=== PATIENT | female | born 1960 | race Caucasian/White ===

== ENCOUNTER → 2018-10-19 14:05 | Outpatient (CLI) | payer OTHER, SELFPAY ==
[2018-10-18 14:59] VITALS: BMI 35.6
--- OUTSIDE RECORDS SUMMARY | 2019-01-21 01:46 | XMS RPT_ITS ---
:1960 Author Organization OHIP Care Team Providers Name Role Phone Chauncey Pickett Attending Unavailable Dinorah Coleman Referring Unavailable Chauncey Pickett Attending Unavailable Chauncey Pickett Referring Unavailable Dinorah Coleman Primary Care Unavailable ASSESSMENT, HEALTH RISK Attending Unavailable ASSESSMENT, HEALTH RISK Referring Unavailable Dinorah Coleman Primary Care Unavailable PROBLEMS PROBLEMS DATE TYPE CONDITION / CODE ATTENDING STATUS SOURCE 10/19/2018 Unknown R05 - Cough / Chauncey Pickett Active [place] R05(ICD-10) [facility] Repository PROCEDURES PROCEDURES No Procedure Records FoundRESULTS RESULTS Observed: 10/19/2018 Status: F Source: [place] CULTURE, R/O STREP A 2:57 PM [facility] Culture No Group A Beta Streptococcus isolated. * This cultures intended use is to screen for Beta Streptococcus A only. All other pathogens and potential pathogens will not be screened for or reported. If a complete workup of all potential pathogens is indicated an order for a routine throat culture is required. Performed By: #### M100.010 #### [facility] [address] [place], [address] URGENT CARE VISIT Observed: 10/18/2018 Status: F Source: [place] REPORT 3:16 PM [facility] [address] [place] [address] [address] [place] [address] OFFICE VISIT Date of Service: 10/18/18 MR#: [id number] Acct: [id number] Name: RADHA GARCIA Rep #: [id number] : 1960 Provider: Chauncey SHANNON Age/Sex: 58/F Location: [facility] Status: Signed Intake Vital Signs10/18/18 Height 5 ft 4 in Intake Visit Reasons: COUGH, UPPER RESPIRATORY Chief Complaint: Cough Clipper Counters Required: No Accompanied by: self Allergies No Known Allergies Allergy (Verified 10/18/18 15:00) Medications Naproxen [Naprosyn] 500 mg PO BID #20 tab 07/02/15 [Rx Confirmed 10/18/18] Oxycodone HCl/Acetaminophen [Percocet 5/325] 1 - 2 tab PO Q4H PRN PRN #20 tab 07/02/15 [Rx Confirmed 10/18/18] Prednisone 10 mg PO DAILY 07/02/15 [History Confirmed 10/18/18] benzonatate 200 mg capsule 200 mg PO TID PRN #20 cap 10/18/18 [Rx Confirmed 10/18/18] PFSH Surgical History History of appendectomy (Acute) Family History Other CVA (cerebral vascular accident) Social History Smoking Status: Never smoker HPI HPI Chief Complaint: Cough Details: RADHA GARCIA, is a 58 F who presents to the office today for initial evaluation cough and sore throat times approximately 72 hours. Patient has no complaints of fever, chills, sweats, rash, chest pain/shortness of breath. Patient is a non-smoker noting no other members in household with similar complaints. She has taken no [id number] products to assist with her symptoms. She notes no other associated symptoms no other alleviating or aggravating factors. ROS Const Constitutional: No other (ROS negative x10 other than as noted above) Exam Const General: cooperative, healthy appearing, no acute distress, comfortable Orientation: alert, awake, oriented x3 [facility] Head: normal to inspection Ears: hearing grossly normal bilaterally, external ears normal, TM's normal bilaterally, EAC's normal Nose: external nose normal, nares normal, septum normal, no nasal discharge Face and sinus: normal facial exam, sinuses nontender, face symmetric Mouth: tongue normal, lip normal, oral mucosae normal Teeth and gingiva: dentition normal, gingiva normal Throat: uvula midline, posterior oropharynx normal, no postnasal drainage, abnormal tonsil bilaterally erythema (Rapid strep test today negative) Eyes General: appearance normal, both eyes and all related structures Neck Neck: normal visual inspection, full ROM, no lymphadenopathy, no meningeal signs, supple Neck mass: No Thyroid: thyroid normal Lymphatic: no lymphadenopathy noted Chest Chest palpation AND inspection: normal inspection of the chest Resp Effort AND Inspection: normal respiratory effort, able to speak in complete sentences, symmetric chest movement, cough Quality of cough: wet (Nonproductive) Auscultation: Bilateral: Clear to Auscultation Cardio Palpation: normal PMI Rate: regular rate Rhythm: regular rhythm Heart Sounds: S1 normal, S2 normal, no gallops, no murmurs, no rubs Pulses: radial pulses present GI Inspection: normal to inspection Palpation: soft, no hepatosplenomegaly Skin General: no rashes or lesions noted Neuro General: alert, awake, oriented x3, gait normal Cognition: normal cognition Speech: speech normal Gait: normal gait Motor: muscle tone normal throughout Sensory Exam: no sensory deficits noted Psych Appearance: grossly normal Mental Status: mental status grossly normal Mood: congruent mood Affect: normal affect Speech and Movement: speech and movement normal Attitude: cooperative Thought Process: normal Thought Content: normal Judgment: judgment good Results BMSRAPIDSTREPA Office Rapid Strep A Negative Last Edit by Wandy Kahn on 10/18/18 15:09 Assessment AND Plan Problems 1. Bronchitis J40 2. Pharyngitis J02.9 Plan [place] as needed as prescribed today. Patient aware today's rapid strep test was negative therefore culture sent to lab for further evaluation. Avoid tobacco smoke exposure. Follow-up PCP in 5-7 days should symptoms not improve, sooner should symptoms worsen or any other concerns develop. Patient states acknowledging understanding all the above. This note was generated with Exabre dictation software. It may contain incorrect words, spelling, and punctuation that were not noted in checking the note before signing. Orders Orders: Medications New: Coding Level of Care Code Off vis,new,level 3 Diagnoses Bronchitis J40 Pharyngitis J02.9 10/18/18 1516 <Electronically signed by Chauncey SHANNON> Date Chauncey SHANNON Cosigner Signature: Date (if applicable) CC: CBC, EMPLOYEE Collected: 07/28/2018 Status: F Source: [place] 11:47 AM [facility] TYPE CODE TESTS RESULT OUT OF RANGE REFERENCE UNITS LAB L100.1000 4.4-11.0 K/mm3 Normal WBC 5.0 LAB L100.1200 4.2-5.4 M/mm3 Normal RBC 4.89 LAB L100.1300 12.0-15.0 g/dl Normal HGB 13.9 LAB L100.1400 37-47 % Normal HCT 41.8 LAB L100.1500 81-99 fL Normal MCV 85.5 LAB L100.1600 27.0-32.0 pg Normal MCH 28.4 LAB L100.1700 32-36 g/gl Normal MCHC 33.3 LAB L100.1810 11.6-14.6 % Normal RDW CV 13.0 LAB L100.1820 35.1-43.9 fl Normal RDW SD 40.5 LAB L100.1900 150-450 K/mm3 Normal PLT 385 LAB L100.2000 6.2-12.0 fl Normal MPV 9.3 LAB L100.2110 47-70 % Normal NEUT% 50.4 LAB L100.2210 19-41 % Normal LY% 39.0 LAB L100.2310 0-10 % Normal MONO% 6.0 LAB L100.2410 0-5 % Normal EO% 3.8 LAB L100.2510 0-1 % Normal BASO% 0.8 LAB L100.2620 2.0-7.7 X10 3/uL Normal Absolute Neut 2.5 LAB L100.2720 0.83-4.51 X10 3/ul Normal Absolute Lymph 1.95 Performed By: #### L100.0200 #### [facility] [address] [facility] [place], [address] URINALYSIS, EMPLOYEE Collected: 07/28/2018 Status: F Source: [place] 11:47 AM [facility] TYPE CODE TESTS RESULT OUT OF RANGE REFERENCE UNITS LAB L400.3000 Yellow COLOR Normal Yellow LAB L400.3050 Clear Normal CLARITY Sl. Cloudy LAB L400.3200 Normal mg/dl Normal GLUCOSE, UR Normal LAB L400.3300 Negative mg/dL Normal BILIRUBIN URINE Negative LAB L400.3400 Negative mg/dl Normal KETONE UR Negative LAB L400.3465 1.002-1.030 Normal SP.GR. DIPSTX 1.010 LAB L400.3550 5.0 - 8.0 pH UR Normal 7.0 LAB L400.3600 Negative mg/dl PROT Normal DIPSTX Negative LAB L400.3700 Normal mg/dl Normal UROBILI Normal LAB L400.3750 Negative Normal NITRITE UR Negative LAB L400.3780 Negative /ul Normal OCCULT BLOOD-UR Negative LAB L400.3800 Negative /ul High LEUK 25 ESTERASE Performed By: #### L400.0100 #### [facility] [address] [facility] [place], [address] NICOTINE URINE DRUG Collected: 07/28/2018 Status: F Source: [place] SCREEN 11:47 AM [facility] TYPE CODE TESTS RESULT OUT OF RANGE REFERENCE UNITS LAB L505.6250 TO BE Normal CONFIRMED Result Comment: CONFIRMATORY TESTING FOR ALL POSITIVE URINE DRUG SCREEN RESULTS WILL ONLY BE SENT OUT UPON PHYSICIAN ORDER. The results of Urine Drug Screen methods provide only preliminary analytical test results. A more specific alternate chemical method must be used in order to obtain a confirmed analytical result. Gas chromatography/mass spectrometery (GC/MS) is the preferred confirmatory method. Clinical consideration and professional judgement should be applied to any drug of abuse test result, particularly when preliminary positive results are used. LAB L505.6270 <200 ng/mL Normal COT DRG Negative SCREEN Result Comment: Cotinine is the first-stage metabolite of Nicotine. Performed By: #### L505.6240 #### [facility] [address] [place], [address] EMPLOYEE PROFILE Collected: 07/28/2018 Status: F Source: [place] 11:47 AM [facility] TYPE CODE TESTS RESULT OUT OF RANGE REFERENCE UNITS LAB L501.0100 74-106 mg/dL Normal GLU 90 Result Comment: Please note revised GLUCOSE reference range effective 2017. LAB L501.1000 7-18 mg/dL Normal BUN 9 LAB L501.1100 0.55-1.02 mg/dL Normal CREAT,SERUM 0.78 Result Comment: The validity of the calculated GFR AND GFRAA in patients over 70 years has not been determined. Clinical correlation is essential. LAB L501.1110 >60 mL/min Normal EST GFR 81 Result Comment: Non- GFR Calc LAB L501.1115 >60 mL/min Normal EST GFR - AA 98 Result Comment: GFR Calc LAB L501.1300 10-20 RATIO Normal BUN/CRE 11.6 LAB L501.1400 2.6-6.0 mg/dL Normal URIC 5.4 Result Comment: The drugs N-Acetylcysteine and Metamizole may falsely depress this assay. LAB L501.1500 6.4-8.2 g/dL Normal T PROT 7.9 LAB L501.1800 3.2-5.0 g/dL Normal ALB 3.8 LAB L501.1950 2.2-4.2 g/dL Normal GLOB 4.1 LAB L501.2000 0.9-2.4 RATIO Normal A/G 0.9 LAB L501.2200 8.5-10.1 mg/dL Normal CA 8.9 LAB L501.2300 2.5-4.9 mg/dL Normal PHOS 3.2 LAB L501.4100 15-37 U/L Normal AST 17 LAB L501.4305 45-117 U/L Normal ALK P 83 LAB L501.4405 13-56 U/L Normal ALT 24 LAB L501.4600 0.20-1.00 mg/dL Normal T BILI 0.40 LAB L501.4700 0.00-0.30 mg/dL Normal D BILI 0.09 LAB L501.4900 200 mg/dL High CHOL 263 Result Comment: <200 mg/dL Desirable 200-240 mg/dL Borderline >240 mg/dL High Risk LAB L501.5000 mg/dL Normal TRIG 184 Result Comment: The drugs N-Acetylcysteine and Metamizole may falsely depress this assay. Serum Triglycerides Reference Interval Normal <150 mg/dL Borderline high 150 - 199 mg/dL High 200 - 499 mg/dL Very High > or = 500 mg/dL LAB L501.5300 136-145 mmol/L Normal NA 141 LAB L501.5600 3.5-5.1 mmol/L Normal K 4.1 LAB L501.5900 98-107 mmol/L Normal CL 105 LAB L501.6100 21.0-32.0 mmol/L Normal CO2 27.0 LAB L501.6200 5-15 Normal 9 GAP LAB L501.6400 mg/dL Normal HDL 63 Result Comment: The drugs N-Acetylcysteine and Metamizole may falsely depress this assay. Reference Range HDL <40 mg/dL Low HDL Cholesterol HDL >or= 60 mg/dL High HDL Cholesterol LAB L501.6475 Normal CHOL:HDL 4.20 LAB L501.6500 0-130 mg/dL High LDL 163 LAB L501.6600 5-40 mg/dL Normal VLDL 37 LAB L504.2610 84-246 U/L Normal LDH 228 Performed By: #### L500.2900 #### [facility] [address] [place], [place], [address] ALLERGIES ALLERGIES DATE TYPE / CODE NAME / CODE REACTION SEVERITY SOURCE 10/18/2018 Drug No Known Unknown [facility] Allergy/4160 Allergies/F00 Hospital 58848(SNOMED [id number](RXNOR Repository CT) M) ENCOUNTERS ENCOUNTERS ADMIT/DISCHARGE ACCOUNT ADMITTING ENCOUNTER LOCATION SOURCE NUMBER CLASS 10/19/2018 [id number] Ambulatory [place] [address] ing:LABSPEC Repository 10/18/2018/ [id number] Ambulatory BMSBuilding:B [place] [address] [facility] Repository 07/28/2018 [id number] Ambulatory [place] [facility] ing:EMPH Repository PAYERS PAYERS ENCOUNTER GUARANTOR PAYER SUBSCRIBER SOURCE 10/19/2018 RADHA Sorto Primary Insurance:[facility] RADHA Apodaca [id number] [facility] [address] [address]Jgj: Number: Repository [id number] () Date:[id number] [facility] [address] [address]EA: CHECK WEBSITE 10/19/2018 Secondary NOT GIVENUNK [place] Insurance:SELF PAY [facility] Number: Effective Repository Date:2018-10-19 10/18/2018 RADHA Sorto Primary Insurance:[facility] RADHA Apodaca [id number] [facility]: [address] [address]Wmo: Number: Repository [id number] () Date:[id number] [address], [place] [address]BJ: CHECK WEBSITE 10/18/2018 Secondary NOT GIVENUNK [place] Insurance:SELF PAY [facility] Number: Effective Repository Date:2018-10-18 07/28/2018 Radha Sorto Primary NOT GIVENUNK [place] [id number] Insurance:SELF PAY [facility] [address]Mzy: Number: Effective Repository Date:2018-07-28 ()
== END ==
PROVIDERS: Family Provider Family Medicine; PCP Family Medicine; Referring Provider Physician Assistant; Visit Provider Physician Assistant
DX: R05 Cough (principal)
CPT/HCPCS: 87081

== ENCOUNTER → 2019-07-18 15:34 | Outpatient (CLI) | payer OTHER, SELFPAY ==
[2018-10-18 14:59] VITALS: BMI 35.6
[2019-07-18 17:47] LABS: Absolute Lymphocyte Count 1.98 X10^3/uL (0.83-4.51); Absolute Neutrophil Count 2.6 X10^3/uL (2.0-7.7); Basophil# 0.04 X10^3/uL; Basophil% 0.8 % (0-1); Eosinophil# 0.18 X10^3/uL; Eosinophils% 3.4 % (0-5); Hematocrit 40.1 % (37-47); Lymphocyte # 1.98 X10^3/ul (4.0); Lymphocyte % 37.8 % (19-41); Mean Corp Hgb Conc 32.4 g/dL (32-36); Mean Corpuscular Hgb 28.1 pg (27.0-32.0); Mean Corpuscular Volume 86.8 fL (81-99); Mean Platelet Vol. 10.1 fl (6.2-12.0); Monocyte# 0.41 X10^3/uL; Monocyte% 7.8 % (0-10); NRBC Flagged by Analyzer 0 % (0-5); Neutrophil # 2.62 X10^3/uL (2.7-7.7); Platelet Count 361 K/mm3 (150-450); RBC Distribution Width CV 12.8 % (11.6-14.6); RBC Distribution Width SD 40.6 fl (35.1-43.9); Red Blood Count 4.62 M/mm3 (4.2-5.4); White Blood Count 5.2 K/mm3 (4.4-11.0)
[2019-07-18 17:57] LABS: Erythrocyte Sedimentation Rate 19 mm/hr (0-30)
[2019-07-18 18:08] LABS: CRP < 2.90 mg/L (0.0-3.0); Rheumatoid Factor < 10.0 IU/mL (<15); Thyroid Stim Hormone (TSH) 1.26 uIU/mL (0.358-3.74); Uric Acid 5.4 mg/dL (2.6-6.0)
[2019-07-20 15:51] LABS: ANTINUCLEAR ANTIBODIES DIRECT Negative (Negative)
== END ==
PROVIDERS: Family Provider Family Medicine; PCP Family Medicine; Visit Provider Family Medicine
DX: M25.50 Pain in unspecified joint (principal)
CPT/HCPCS: 36415; 84443; 84550; 85025; 85652; 86038; 86140; 86431

== ENCOUNTER 2022-04-23 14:59 | Outpatient (RCR) | payer OTHER, SELFPAY ==
--- NOTE | 2022-04-23 16:06 | HP.PTEVAL_ITS ---
Patient's Visit Information ANITHA GARCIA is a 61 year old F referred to Physical Therapy by Von Martell PA-C with a diagnosis of L unilateral OA knee s/p gel shot. Date of Evaluation: 04/23/22 Physical Therapist: NARA Dick - Visit Plan Frequency: 2x /Week Duration: 6 Weeks Plan: 2X/ week for 6 weeks for AT for core stability, hip and knee and ankle strengthening, general strengthening, endurance with HEP. Pt schedule is limited and wants to learn a full AT program to be able to do on his own. HEP GIven: pelvic tilt, bridges, SLR, S/L hip abd, QS - Subjective Pt has been struggle with L knee for 5 years. She worked with Dr Canales a little bit and did some PT and failed and then it calmed down and the last 6 mo to a year it has flarred up. She had a gel shot a week ago. The get shot has not helped yet. She wishes that she did not do it at this point cause she can not do anything else for another 6 months now. She knows that her L knee is hurting and her R knee is tired of doing all the work. Her back and hips hurt and her feet hurt. She is all out of wack and can not exercise now because of pain. She is struggling to take care of her yard and house because of pain. - Pain Back pain Pain Intensity (Out of 10): 0 Pain Intensity Range: 4 Comment: with walking or could be higher depending 7/10 L knee pain Pain Intensity (Out of 10): 5 Pain Intensity Range: 7 R knee pain Pain Intensity (Out of 10): 5 - Objective Gait: walks with decrease stance time on the L LE. Pt is unable to walk on heels and toes due to increase pain. Trunk AROM: flex 75%, ext 50%, SB B 75%, Rot 50% B. LE MMT: B hip flex 4-/5, R knee ext 4/5 and L knee ext 4-/5, R knee flex 4/5 and L knee flex 4/5, L hip abd 4-/5 and R 4/5. Pt has a good understanding of how to do a pelvic tilt. R knee AROM 131 and -3 degrees from full extensin. L knee AROM 129 degrees and -5 degrees from full extension - Balance/Special Test Scores Lower Extremity Functional Score: 48 - Goals Goal 1:: I HEP either on land or in the water Goal Time Frame: 8-12 Weeks Goal 2:: Decrease B knee, hip and back pain by 50% Goal Time Frame: 8-12 Weeks Goal 3:: Be able to complete house and yard work with 50% less pain Goal Time Frame: 8-12 Weeks - Rehabilitation Potential Rehabilitation Potential: Good - Anticipated Interventions Patient/Client Instruction: Educate patient on: Condition, Plan of Care For the Purpose of:: To decrease pain, To increase ROM, To improve nutrient delivery to tissue, To increase oxygenation perfusion, To improve muscle performance and motor function, To improve ability to perform ADL's, To increase tolerance to activity/condition/position, To improve performance and independence with ADL's, To decrease level of supervision to perform tasks, To improve ability of physical actions for home/community/work/leisure, To improve gait and locomotor functions, To improve health of tissue, To decrease soft tissue restriction, To increase flexibility/ROM, To improve endurance, To improve balance Therapeutic Exercise to Include: Strength training, Endurance training, Balance training, Flexibilty training, Gait and locomotor training, Neuromotor development, In an aquatic setting, Passive ROM, Active ROM, Dynamic Lumbar Stabilization For the Purpose of:: To decrease pain, To increase ROM, To improve nutrient delivery to tissue, To improve muscle performance and motor function, To improve ability to perform ADL's, To increase tolerance to activity/condition/position, To improve performance and independence with ADL's, To decrease level of supervision to perform tasks, To improve ability of physical actions for home/community/work/leisure, To improve gait and locomotor functions, To improve health of tissue, To decrease soft tissue restriction, To increase flexibility/ROM Functional Training to Include: Gait training For the Purpose of:: To decrease pain, To decrease swelling/inflammation, To increase ROM, To improve nutrient delivery to tissue, To improve muscle per formance and motor function, To improve ability to perform ADL's, To increase tolerance to activity/condition/position, To improve performance and independence with ADL's, To decrease level of supervision to perform tasks, To improve ability of physical actions for home/community/work/leisure, To improve gait and locomotor functions, To improve health of tissue, To decrease soft tissue restriction, To increase flexibility/ROM, To improve endurance Thank you for the opportunity to evaluate your patient. For Medicare and Medicare HMO plans, please review the plan of care and approve it. It will need to be FAXED BACK to us at [phone] for Medicare purposes. For Medicare only, by signing this I certify the plan of care. Please let me know if there are questions or concerns regarding this plan of care. Physician Signature: Date:
--- NOTE | 2022-07-21 13:51 | HP.PT.NRP ---
ANITHA GARCIA was seen in my office for initial evaluation on 04/23/22. The following Plan of Care was established for this patient: Initial Frequency: 2x /Week Initial Duration: 6 Weeks Patient/Client Instruction: Educate patient on: Condition, Plan of Care For the Purpose of:: To decrease pain, To increase ROM, To improve nutrient delivery to tissue, To increase oxygenation perfusion, To improve muscle performance and motor function, To improve ability to perform ADL's, To increase tolerance to activity/condition/position, To improve performance and independence with ADL's, To decrease level of supervision to perform tasks, To improve ability of physical actions for home/community/work/leisure, To improve gait and locomotor functions, To improve health of tissue, To decrease soft tissue restriction, To increase flexibility/ROM, To improve endurance, To improve balance Therapeutic Exercise to Include: Strength training, Endurance training, Balance training, Flexibilty training, Gait and locomotor training, Neuromotor development, In an aquatic setting, Passive ROM, Active ROM, Dynamic Lumbar Stabilization For the Purpose of:: To decrease pain, To increase ROM, To improve nutrient delivery to tissue, To improve muscle performance and motor function, To improve ability to perform ADL's, To increase tolerance to activity/condition/position, To improve performance and independence with ADL's, To decrease level of supervision to perform tasks, To improve ability of physical actions for home/community/work/leisure, To improve gait and locomotor functions, To improve health of tissue, To decrease soft tissue restriction, To increase flexibility/ROM Functional Training to Include: Gait training For the Purpose of:: To decrease pain, To decrease swelling/inflammation, To increase ROM, To improve nutrient delivery to tissue, To improve muscle performance and motor function, To improve ability to perform ADL's, To increase tolerance to activity/condition/position, To improve performance and independence with ADL's, To decrease level of supervision to perform tasks, To improve ability of physical actions for home/community/work/leisure, To improve gait and locomotor functions, To improve health of tissue, To decrease soft tissue restriction, To increase flexibility/ROM, To improve endurance This patient was last seen in our office 04/10/22. Pertinent comments regarding their Physical therapy will appear below: Pt did not reschedule additional visits and will be discharged at this time. At this point I will be discontinuing this patient from physical therapy. I would be happy to see this patient again in the future if found appropriate by the physician. Thank you! Jenni Morfin, NARA Balance/Gait/Functional tests - Balance/Special Test Scores Lower Extremity Functional Score: 48
== END 2022-04-23 19:00 | disposition home or self-care (01) ==
LOC: PT 14:59
PROVIDERS: PCP Family Medicine; Referring Provider Physician Assistant Surgical; Visit Provider Physician Assistant Surgical
DX: M17.12 Unilateral primary osteoarthritis, left knee (principal)
CPT/HCPCS: 97162

== ENCOUNTER 2024-11-23 17:27 | Emergency (ER) | payer OTHER, SELFPAY ==
[2024-11-23 17:28] VITALS: BP 152/72; PULSE 72; RESP 16; TEMP 36.6; O2SAT 98
--- NOTE | 2024-11-23 17:35 | RAD_ITS ---
INDICATION: INJURY EXAMINATION/TECHNIQUE: X-RAY - LEFT XR Hip Unilateral with Pelvis when performed; 2-3 Views COMPARISON: None. FINDINGS: No acute fracture or malalignment. No blastic or lytic lesions. Mild degenerative changes of the bilateral hips. The soft tissues are unremarkable. RAD/HIP, UNI W/ Pelvis 2-3 Views IMPRESSION: No acute radiographic abnormalities. Electronically Signed: Stephen Stewart MD at 17:47 EST ,
--- NOTE | 2024-11-23 19:12 | EDS_ITS ---
HPI History of Present Illness Chief Complaint: Lower Extremity Injury Informant: patient Narrative Narrative: Patient is a 64-year-old female with history of osteoarthritis, multiple arthralgias in the hips, knees and lower back (on meloxicam) presenting with acu te pain to her left hip. Patient states that she was at home when she turned and all of a sudden felt a pop in her left hip. She has had increased pain since. This happened around 10 or 11 AM. She took Tylenol 1 hour afterwards with no relief. She denies any numbness or tingling. She does have some slight radiation down her thigh. Denies any acute pain in her back. Denies any weakness of the legs. Denies any fall or trauma. No other complaints or concerns at this time. Not on any blood thinners. [facility] Medical History Arthritis Home Medications ?Medication ?Instructions ?Recorded ?Last Taken ?Type azithromycin 250 mg tablet See Rx Instructions PO .COMPLEX #6 12/04/23 Unknown Rx tabs benzonatate 100 mg capsule 200 mg (2 x 100 mg) PO TID PRN 12/04/23 Unknown Rx cough #30 caps [id number]-[id number] 5 ml PO Q4-6H PRN cold symptoms 12/04/23 Unknown Rx 2 mg-30 mg-10 mg/5 mL oral syrup #473 mL (Bromfed DM) ibuprofen 600 mg tablet 600 mg PO Q6H PRN PRN pain #20 11/23/24 Unknown Rx TABLETS prednisone 20 mg tablet 40 mg (2 x 20 mg) PO DAILY #10 tabs 11/23/24 Unknown Rx Allergy/AdvReac Type Severity Reaction Status Date / Time No Known Allergies Allergy Verified 11/23/24 17:30 Family History Other CVA (cerebral vascular accident) Surgical History History of appendectomy Social History Smoking Status: Never smoker ROS ROS ED Constitutional Constitutional ED: Denies chills or fever(s) Gastrointestinal Gastrointestinal: Denies nausea Musculoskeletal Musculoskeletal: Reports other Details: Left hip pain Integumentary Denies rash Neurologic Neurologic: Denies paresthesias or weakness Hematologic/Lymphatic Hematologic/Lymphatic: Denies easy bleeding EXAM Physical Exam Const Vital Signs: 11/23/24 17:28 Temperature 97.8 F Temperature Source Temporal Pulse Rate 72 Respiratory Rate 16 Blood Pressure 152/72 H Blood Pressure Mean 98 Pulse Ox 98 Oxygen Delivery Method Room Air Positive well nourished and well developed General Appearance ED: well developed and NAD HEENT Reports moist mucous membranes Resp normal respiratory effort Cardio regular rate and regular rhythm Back/Spine Back/Spine Narrative: No tenderness of SI joints Lumbar Spine / Lower Back: Negative for lumbar spinal tenderness Extremity normal to inspection and full ROM Extremity Narrative: Able to walk but is increased pain with weightbearing of the left leg. Pain localizes to the left greater trochanter. There are some mild pain with palpation of that area. No deformity of the extremities appreciated. No peripheral edema. Neuro oriented x3 Sensorium / Orientation: alert Deep Tendon Reflexes: Rt Patellar (L4): 2+ and Lt Patellar (L4): 1+ Deep Tendon Reflexes Back: Rt Patellar (L4): 2+ and Lt Patellar (L4): 1+ Psych mental status grossly normal Skin no wounds Rashes: no rashes MDM MDM MDM Narrative Medical decision making narrative: Patient is evaluated for acute onset of left hip pain when she turned and felt a pop in her hip. Vital signs significant for mildly elevated blood pressure 152/72. She has no obvious deformity. Differential includes hip sprain, hip dislocation, fracture and strain. Protocol x-ray of the hip reviewed by myself as well as radiology does not show any acute process. Patient is a mild degenerative changes of the bilateral hips. I suspect this is more of a strain to that hip. I discussed CT for ruling out occult fracture but will hold off at this time as patient is able to weight-bear. Will have her hold her meloxicam and switch to Motrin 600 mg every 6 and discussed RICE therapy. She has crutches to use at home as needed. Is given referral for orthopedics ([place] per patient request). Will be given a [id number] prescription for prednisone as well. Patient verbalized agreement understands plan. Discharged home in stable condition. Radiography Diagnostic Testing: Clinical Impression(s) from Imaging Studies Hip/Pelvis X-Ray 11/23/24 17:35 IMPRESSION: No acute radiographic abnormalities. Electronically Signed: Stephen Stewart MD at 17:47 EST , Discharge Plan Triage Chief Complaint: Lower Extremity Injury ED Provider: Simi Childress Dx/Rx/DC Orders Clinical Impression: Muscle strain of left hip Instructions: ED Hip Strain Prescriptions: New ibuprofen 600 mg tablet 600 mg PO Q6H PRN PRN (Reason: pain) Qty: 20 0RF prednisone 20 mg tablet 40 mg PO DAILY Qty: 10 0RF No Action azithromycin 250 mg tablet See Rx Instructions PO .COMPLEX Qty: 6 0RF Rx Instructions: take 500 mg today (day 1), then 250 mg for 4 days (days 2-5) PO benzonatate 100 mg capsule 200 mg PO TID PRN (Reason: cough) Qty: 30 0RF [id number] [Bromfed DM] 2-30-10 mg/5 mL syrup 5 ml PO Q4-6H PRN (Reason: cold symptoms) Qty: 473 0RF Primary Care Provider: Dinorah Coleman Referrals: Dinorah Coleman MD [Primary Care Provider] - Juanito Houston DO [Med Staff - Active Staff] - 3-5 Days if not improving Activity Restrictions/Additional Instructions: Suspect you have strain of your hip. Your x-ray did not show any acute fract ure/broken bone. I will treat it conservatively with anti-inflammatories, ice and rest. If your symptoms worsen regarding walking please return to the emergency room for repeat evaluation. Please follow-up with orthopedics. While taking the ibuprofen as prescribed today please hold your meloxicam. You may also continue take Tylenol. You have also been given a [id number] prescription for prednisone. If you are not improving over the next 3 to 5 days you may start taking it. Print Language: Greek Disposition Disposition: Home, Self Care
== END 2024-11-23 19:39 | disposition home or self-care (01) ==
PROVIDERS: Emergency Provider Emergency Medicine; PCP Family Medicine; Visit Provider Emergency Medicine
DX: S76.012A Strain of muscle, fascia and tendon of left hip, initial encounter (principal); M16.0 Bilateral primary osteoarthritis of hip; R03.0 Elevated blood-pressure reading, without diagnosis of hypertension; X50.9XXA Other and unspecified overexertion or strenuous movements or postures, initial encounter
CPT/HCPCS: 73502; 99282

== ENCOUNTER 2025-06-04 18:45 | Emergency (ER) | payer OTHER, SELFPAY ==
[2025-06-04 18:46] VITALS: BP 143/79; PULSE 78; RESP 18; TEMP 37.2; O2SAT 98; BMI 35.4
--- NOTE | 2025-06-04 19:03 | ED.VIS.BACK ---
HPI History of Present Illness Chief Complaint: Back Narrative Narrative: 64-year-old female past medical history of DJD of the lumbar spine and previous back pain presents with a 1 week history of low back pain radiating to her left hip. She denies any fevers or chills, no loss of bowel or bladder, no saddle anesthesia, no signs of cauda equina. She states that she worked to 12-hour shifts over the weekend which aggravated her low back pain. She has had prednisone in the past as well as muscle relaxers which have helped her. [facility] Medical History Arthritis Home Medications ?Medication ?Instructions ?Recorded ?Last Taken ?Type ibuprofen 600 mg tablet 600 mg PO Q6H PRN PRN pain #20 11/23/24 Unknown Rx TABLETS cyclobenzaprine 10 mg tablet 10 mg PO TID PRN Muscle Spasm #20 06/04/25 Unknown Rx TABLETS meloxicam 15 mg tablet 15 mg PO DAILY 06/04/25 Unknown History prednisone 20 mg tablet 40 mg (2 x 20 mg) PO DAILY 7 days 06/04/25 Unknown Rx #14 tabs sertraline 50 mg tablet 50 mg PO DAILY 06/04/25 Unknown History Allergy/AdvReac Type Severity Reaction Status Date / Time No Known Allergies Allergy Verified 05/18/25 14:58 Family History Other CVA (cerebral vascular accident) Surgical History History of appendectomy Social History Smoking Status: Never smoker ROS ROS ED ROS Narrative Review of systems positive for low back pain radiating to left hip. No fevers or chills, no loss of bowel or bladder, no saddle anesthesia. Worse with movement. Increasing over the last few days. EXAM Physical Exam Narrative Exam Narrative: Afebrile. Vital signs noted. Nontoxic-appearing. Cardiovascular examination reveals regular rate and rhythm. Lungs are clear to auscultation bilaterally. Abdomen is soft and nontender with positive bowel sounds. Neurological examination is nonfocal, nonlateralizing. Ambulatory in the ED. Mild tenderness to palpation diffusely in lumbar spine area but no palpable step-off. Mild tenderness in left sacroiliac area and sciatic notch. Neurovascularly intact bilateral lower extremities. Const Vital Signs: 06/04/25 18:46 Temperature 98.9 F Temperature Source Oral Pulse Rate 78 Respiratory Rate 18 Blood Pressure 143/79 H Blood Pressure Mean 100 Pulse Ox 98 Oxygen Delivery Method Room Air MDM MDM MDM Narrative Medical decision making narrative: The differential diagnosis includes but not limited to DJD with sciatica versus sacroiliitis. I have low clinical suspicion for cauda equina because the history physical does not support this. She has not had any trauma or falls recently. I discussed with her the utility of x-rays but it was decided through shared decision making that those will be foregone. She was treated with a loading dose of prednisone 60 mg orally here. I wrote her for a 40 mg prednisone burst for the next 7 days as well as a prescription for Flexeril which she has taken in the past. I feel she can be discharged safely home with follow-up to her primary care provider. She can also be referred to a customer engineering specialist such as Dr. Macias from her primary care provider. Return instructions to the emergency department reviewed. Disposition is discharged home in stable condition. History & Record Review Discussion w/independent historian: Patient Additional record(s) reviewed:: Prior ED visit (Last had prednisone in November for hip pain) Discharge Plan Triage Chief Complaint: Back ED Provider: Vincenzo Sr Dx/Rx/DC Orders Clinical Impression: Low back pain, Lumbar radiculopathy Instructions: ED Back Pain (Acute or Chronic), ED Sciatica Prescriptions: New prednisone 20 mg tablet 40 mg PO DAILY 7 Days Qty: 14 0RF cyclobenzaprine 10 mg tablet 10 mg PO TID PRN (Reason: Muscle Spasm) Qty: 20 0RF No Action meloxicam 15 mg tablet 15 mg PO DAILY sertraline 50 mg tablet 50 mg PO DAILY ibuprofen 600 mg tablet 600 mg PO Q6H PRN PRN (Reason: pain) Qty: 20 0RF Primary Care Provider: Dinorah Coleman Referrals: Dinorah Coleman MD [Primary Care Provider] - 3-5 Days if not improving Activity Restrictions/Additional Instructions: Take the prednisone burst as directed for the next 7 days. Avoid concomitant NSAID use such as meloxicam. Return with fever, increased pain, new or worsening symptoms. Follow-up with your primary care provider. Print Language: British Disposition Disposition: Home, Self Care
--- OUTSIDE RECORDS SUMMARY | 2025-06-04 19:07 | XMS RPT_ITS | CCD ---
Author Organization [facility] Care Team Providers Care Range Operator Name Role Phone Chauncey Mg Unavailable Dr. Dinorah Coleman MD Primary Care Provider [phone] Dr. Dinorah Coleman MD Referring Provider Jhonny Georges Attending Provider [phone] Jhonny Georges Attending Unavailable Dinorah Coleman Referring Unavailable Dinorah Coleman Primary Care Unavailable Simi Childress Attending Unavailable Dinorah Coleman Primary Care Unavailable Assessment, Health Risk Attending Unavaila ble Dinorah Coleman Primary Care Unavailable Assessment, Health Risk Referring Unavaila ble Medications Current Medications Medication Drug Class(es) Dates Sig (Normalized) Sig (Original) ibuprofen 600 mg oral tablet (1 source) Nonsteroidal Anti-inflammatory Drug Start: 11-23-2024 take 1 tablet by mouth every six hours as needed for pain Ibuprofen 600 mg tablet Active 600 mg PO EVERY 6 HOURS NEEDED as needed for pain November 23, 2024 1:00am Completed/Discontinued Medications Medication Drug Class(es) Dates Sig (Normalized) Sig (Original) acetaminophen 325 mg / oxyCODONE hydrochloride 5 mg oral tablet (2 sources) Opioid Agonist Start: 07-02-2015 End: 04-12-2023 Oxycodone-Acetamino phen 1 TABLET tablet Discontinued 1 - 2 {tbl} PO EVERY 4 HOURS NEEDED as needed for Pain July 02, 2015 12:00am April 12, 2023 11:55am Start: 07-02-2015 take 1 tablet by demi th every four hours as needed Oxycodone-Acetaminophen Active 1 - 2 TABLET PO EVERY 4 HOURS NEEDED July 02, 2015 12:00am amoxicillin 500 mg oral capsule (2 sources) Penicillin-class Antibacterial Start: 04-12-2023 End: 04-22-2023 take 2 capsules by mouth twice daily Amoxicillin 500 mg capsule Discontinued 1000 mg PO TWICE A DAY 40 10 0 April 12, 2023 12:14pm April 21, 2023 12:00am April 22, 2023 12:06am Start: 12-07-2022 End: 12-17-2022 take 2 capsules by mouth twice daily Amoxicillin 500 mg capsule Discontinued 1000 mg PO TWICE A DAY 40 10 0 December 07, 2022 1:00am December 16, 2022 1:00am December 17, 2022 1:05am amoxicillin 875 mg / clavulanate 125 mg oral tablet (2 sources) Penicillin-class Antibacterial Start: 10-22-2016 End: 11-01-2016 AMOXICILLIN-POT CLAVULANATE 875-125 MG TABS One tab Twice daily AMOXICILLIN-POT CLAVULANATE [id number] Jhonny SHANNON azithromycin 250 mg oral tablet (1 source) Macrolide Antimicrobial Start: 12-04-2023 End: 05-18-2025 take 2-5 tablets by mouth once daily Azithromycin 250 mg tablet Discontinued 0 PO .COMPLEX 6 0 December 04, 2023 1:00am May 18, 2025 2:58pm take 500 mg today (day 1), then 250 mg for 4 days (days 2-5) PO benzonatate 100 mg oral capsule (3 sources) Non-narcotic Antitussive Start: 12-04-2023 End: 05-18-2025 take 2 capsules by mouth three times daily as needed for cough Benzonatate 100 mg capsule Discontinued 200 mg PO THREE TIMES A DAY as needed for cough 30 0 December 04, 2023 1:00am May 18, 2025 2:58pm Start: 10-18-2018 End: 12-04-2023 take 1 capsule by mouth three times daily as needed for cough Benzonatate 200 mg capsule Discontinued 200 mg PO THREE TIMES A DAY as needed for cough 20 0 October 18, 2018 1:00am December 04, 2023 3:43pm brompheniramine maleate 0.4 mg/ml / dextromethorphan hydrobromide 2 mg/ml / pseudoephedrine hydrochloride 6 mg/ml oral solution (1 source) alpha-Adrenergic Agonist, Uncompetitive N-nktwts-M-aspartate Receptor Antagonist, Sigma-1 Agonist Start: 12-04-2023 End: 05-18-2025 take 1 mL by mouth every four to six hours as needed Qwhxugpmtdlzjbw-Nkavqcwqc-Ws (Bromfed Dm) 2-30-10 mg/5 mL syrup Discontinued 5 mL PO EVERY 4-6 HOURS as needed for cold symptoms 473 December 04, 2023 1:00am May 18, 2025 2:58pm cyclobenzaprine hydrochloride 10 mg oral tablet (2 sources) Muscle Relaxant Start: 03-01-2022 End: 12-04-2023 take 1 tablet by mouth three times daily as needed for muscle spasms Cyclobenzaprine 10 mg tablet Discontinued 10 mg PO THREE TIMES A DAY as needed for muscle spasm 20 March 01, 2022 12:00am December 04, 2023 3:43pm naproxen 500 mg oral tablet (2 sources) Nonsteroidal Anti-inflammatory Drug Start: 07-02-2015 End: 12-04-2023 take 1 tablet by mouth twice daily Naproxen 500 MG tablet Discontinued 500 mg PO TWICE A DAY July 02, 2015 12:00am December 04, 2023 3:43pm predniSONE 20 mg oral tablet (3 sources) Start: 11-23-2024 End: 05-18-2025 take 2 tablets by mouth once daily Prednisone 20 mg tablet Discontinued 40 mg PO DAILY 10 November 23, 2024 1:00am May 18, 2025 2:58pm Start: 07-02-2015 End: 04-12-2023 take 1 tablet by mouth once daily Prednisone 10 MG tablets,dose pack Discontinued 10 mg PO DAILY July 02, 2015 12:00am April 12, 2023 11:55am Problems Active Problems Problem Classification Problem Date Documented Date Episodic/Chronic Allergic reactions (2 sources) Allergic reaction; Translations: [Allergy, unspecified, initial encounter] Onset: 05-18-2025 05-18-2025 Episodic Chronic obstructive pulmonary disease and bronchiectasis (4 sources) Bronchitis; Translations: [Bronchitis, not specified as acute or chronic] Onset: 10-22-2016 10-22-2016 Episodic Immunizations and screening for infectious disease (1 source) Contact with and (suspected) exposure to other viral communicable diseases; Translations: [Contact with or suspected exposure to other viral communicable disease] 12-04-2023 Episodic Osteoarthritis (2 sources) Osteoarthritis of knee; Translations: [Osteoarthritis of knee, unspecified] Onset: 08-03-2015 08-05-2015 Chronic Other upper respiratory infections (5 sources) Upper respiratory infection; Translations: [Pharyngitis] Onset: 10-09-2016 10-17-2016 Episodic Spondylosis; intervertebral disc disorders; other back problems (2 sources) Low back pain; Translations: [Low back pain] 03-01-2022 Episodic Sprains and strains (1 source) Strain of muscle of hip; Translations: [Strain of muscle, fascia and tendon of left hip, initial encounter] 12-01-2024 Episodic Unclassified (1 source) Encounter for check-up; Translations: [Encounter for general adult medical examination without abnormal findings] Onset: 07-30-2017 07-30-2017 Past or Other Problems Problem Classification Problem Date Documented Da te Episodic/Chronic Joint disorders and dislocations; trauma-related (2 sources) Acute meniscal tear, medial; Translations: [Other tear of medial meniscus, current injury, unspecified knee, initial encounter] Onset: 07-20-2015 07-23-2015 Episodic Medical examination/evaluation (1 source) Encounter for general adult medical examination without abnormal findings; Translations: [Encounter for general adult medical examination without abnormal findings] Onset: 07-30-2017 07-30-2017 Episodic Other non-traumatic joint disorders (2 sources) Knee pain; Translations: [Pain in left knee] Onset: 07-20-2015 07-20-2015 Episodic Other non-traumatic joint disorders (1 source) Pain in left hip; Translations: [Pain in left hip] Onset: 02-10-2025 Episodic Results Test Name Value Interpretation Reference Range Facility Urgent Care Visit Reporton 0 05-18-2025 Urgent Care Visit Report [facility] [address], [address] [place], [place] [address] OFFICE VISIT Date of Service: 05/18/25 MR#: [id number] Acct: [id number] Name: ANITHA GARCIA Rep #: [id number] : 1960 Provider: MIRTHA Esposito Age/Sex: 64/F Location[email or web address] Status: Signed Intake Vital Signs 11/23/24 17:28 05/18/25 14:57 Height 5 ft 5 in BP 122/66 H Blood Pressure Location Lt brachial Position Sitting Respiration 16 Pulse 68 Pulse Source NIBP Temp 98.2 F Temp Source Oral Pulse Oximetry (%) 98 Oxygen Delivery Method room air Intake Visit Reasons: Allergic reaction Chief Complaint: rash, itching, swelling Last Turner Required: No Is patient in pain?: No Allergies No Known Allergies Allergy (Verified 05/18/25 14:58) Medications ???Medication ???Instructions ???Recorded ???Confirmed ???Type ibuprofen 600 mg tablet 600 mg PO Q6H PRN PRN pain #20 Rx TABLETS Is last menstrual period known: No Post menopausal: Yes Patient : No Have you fallen in the past year?: No Nurse's Note: rash, itching, swelling to face, arms, right groin x 1 week. unknown origin. denies SOB, difficulty swallowing/speaking . [facility] Medical History Arthritis Surgical History History of appendectomy Family History Other CVA (cerebral vascular accident) Social History Smoking Status: Never smoker HPI HPI Chief Complaint: rash, itching, swelling Details: ANITHA GARCIA, is a 64 F who presents to the office today for complaint of rash, itching and swelling. Patient states that she has bad allergies and states that she has not been able to make this go away. She has tried Zyrtec, Benadryl and Prilosec. Patient denies shortness of breath, difficulty breathing or chest pain. She states that the itching is located on her arms. No other associated symptoms or alleviating/aggrava ting factors. ROS Const Constitutional: Positive for other (see HPI, otherwise normal ROS) Exam Const General: cooperative and well developed HENMT Head: normal to inspection and atraumatic Ears: hearing grossly normal bilaterally Nose: nasal discharge clear Face and sinus: normal facial exam Mouth: oral mucosae normal Throat: abnormal tonsil bilaterally hypertrophy 1+ Resp Effort Inspection: normal respiratory effort and no audible wheezes Auscultation: Bilateral: Clear to Auscultation Cardio Rate: regular rate Rhythm: regular rhythm Skin Other: Rash bilateral antecubital fossa's with scab formation/abrasions . Very mild swelling around bilateral eyes. Neuro General: patient alert Psych Appearance: grossly normal Mental Status: mental status grossly normal Office Procedures Ortho Injections Injections Is this a patient provided medication?: No Office Meds Kenalog 40 mg/mL suspension for injection Performing Provider: MIRTHA Hicks Performing Location: [facility] Administered by: Anaid Almazan on 05/18/25 15:21 Dose Route Admin Location Dispensed Lot Number Expiration Date [facility] Man ufacturer 60 mg IM right gluteus 1.5 mL [id number] 06/02/27 2782-6682-80 [employer] Coding Level of Care Code Off vis,new,level 3 Diagnoses Allergic reaction T78.40XA Assessment and Plan Assessment and Plan (1) Allergic reaction: Orders: Orders Kenalog Injection Today L30.9 - Dermatitis, unspecified Plan Kenalog injection given in the office today. Encouraged to get plenty of rest, drink lots of clear liquids, and use Benadryl for comfort. Patient also educated on other symptomatic management techniques. To be seen in 7-10 days if no improvement; sooner if worsening of symptoms. Patient advised of potential red flags and when appropriate to report to the ED. Patient verbalized understanding and agreement with all the above. Clinical Quality Measures Falls Risk Screening/Assistive Devices Have you fallen in the past year?: No 05/18/25 1709 Date Jhonny SHANNON Cosigner Signature: Date (if applicable) CC: Normal [facility] Emergency Department Summary on 11-23-2024 Emergency Department Summary [facility] Medical Records Department [address] [place] [address] Emergency Department Summary 11/23/24 MR#: [id number] Acct: [id number] Name: ANITHA GARCIA Rep #: [id number] : 1960 64 From: Simi Childress DO PCP: Dr. Dinorah Coleman MD Status:REG ER Location: ED HPI History of Present Illness Chief Complaint: Lower Extremity Injury Informant: patient Narrative Narrative: Patient is a 64-year-old female with history of osteoarthritis, multiple arthralgias in the hips, knees and lower back (on meloxicam) presenting with acute pain to her left hip. Patient states that she was at home when she turned and all of a sudden felt a pop in her left hip. She has had increased pain since. This happened around 10 or 11 AM. She took Tylenol 1 hour afterwards with no relief. She denies any numbness or tingling. She does have some slight radiation down her thigh. Denies any acute pain in her back. Denies any weakness of the legs. Denies any fall or trauma. No other complaints or concerns at this time. Not on any blood thinners. [facility] Medical History Arthritis Home Medications ???Medication ???Instructions ???Recorded ???Last Taken ???Type azithromycin 250 mg tablet See Rx Instructions PO .COMPLEX #6 12/04/23 Unknown Rx tabs benzonatate 100 mg capsule 200 mg (2 x 100 mg) PO TID PRN 12/04/23 Unknown Rx cough #30 caps brompheniramine-pse udoephedrine-DM 5 ml PO Q4-6H PRN cold symptoms 12/04/23 Unknown Rx 2 mg-30 mg-10 mg/5 mL oral syrup #473 mL (Bromfed DM) ibuprofen 600 mg tablet 600 mg PO Q6H PRN PRN pain #20 11/23/24 Unknown Rx TABLETS prednisone 20 mg tablet 40 mg (2 x 20 mg) PO DAILY #10 tabs 11/23/24 Unknown Rx Allergy/AdvReac Type Severity Reaction Status Date / Time No Known Allergies Allergy Verified 11/23/24 17:30 Family History Other CVA (cerebral vascular accident) Surgical History History of appendectomy Social History Smoking Status: Never smoker ROS ROS ED Constitutional Constitutional ED: Denies chills or fever(s) Gastrointestinal Gastrointestinal: Denies nausea Musculoskeletal Musculoskeletal: Reports other Details: Left hip pain Integumentary Denies rash Neurologic Neurologic: Denies paresthesias or weakness Hematologic/Lymphat ic Hematologic/Lymphat ic: Denies easy bleeding EXAM Physical Exam Const Vital Signs: 11/23/24 17:28 Temperature 97.8 F Temperature Source Temporal Pulse Rate 72 Respiratory Rate 16 Blood Pressure 152/72 H Blood Pressure Mean 98 Pulse Ox 98 Oxygen Delivery Method Room Air Positive well nourished and well developed General Appearance ED: well developed and NAD HEENT Reports moist mucous membranes Resp normal respiratory effort Cardio regular rate and regular rhythm Back/Spine Back/Spine Narrative: No tenderness of SI joints Lumbar Spine / Lower Back: Negative for lumbar spinal tenderness Extremity normal to inspection and full ROM Extremity Narrative: Able to walk but is increased pain with weightbearing of the left leg. Pain localizes to the left greater trochanter. There are some mild pain with palpation of that area. No deformity of the extremities appreciated. No peripheral edema. Neuro oriented x3 Sensorium / Orientation: alert Deep Tendon Reflexes: Rt Patellar (L4): 2+ and Lt Patellar (L4): 1+ Deep Tendon Reflexes Back: Rt Patellar (L4): 2+ and Lt Patellar (L4): 1+ Psych mental status grossly normal Skin no wounds Rashes: no rashes MDM MDM MDM Narrative Medical decision making narrative: Patient is evaluated for acute onset of left hip pain when she turned and felt a pop in her hip. Vital signs significant for mildly elevated blood pressure 152/72. She has no obvious deformity. Differential includes hip sprain, hip dislocation, fracture and strain. Protocol x-ray of the hip reviewed by myself as well as radiology does not show any acute process. Patient is a mild degenerative changes of the bilateral hips. I suspect this is more of a strain to that hip. I discussed CT for ruling out occult fracture but will hold off at this time as patient is able to weight-bear. Will have her hold her meloxicam and switch to Motrin 600 mg every 6 and discussed RICE therapy. She has crutches to use at home as needed. Is given referral for orthopedics ([facility] per patient request). Will be given a [id number]-gto-[id number] prescription for prednisone as well. Patient verbalized agreement understands plan. Discharged home in stable condition. Radiography Diagnostic Testing: Clinical Imp (more content not included)... Normal [facility] HIP, UNI W/ Pelvis 2-3 Views on 11-23-2024 HIP, UNI W/ Pelvis 2-3 Views [facility] Imaging Services [address] [place] [address] HIP, UNI W/ Pelvis 2-3 Views MR#: [id number] Acct: [id number] Name: ANITHA GARCIA Rep #: [id number] : 1960 F 64 From: Stephen joya MD PCP: Dr. Dinorah Coleman MD Status: PRE ER Study: HIP, UNI W/ Pelvis 2-3 Views Date of Exam: Exam# [id number] Ordering Dr: Provider,Ed P. -[id number] INDICATION: INJURY EXAMINATION/TECHNIQ UE: X-RAY - LEFT XR Hip Unilateral with Pelvis when performed; 2-3 Views COMPARISON: None. FINDINGS: No acute fracture or malalignment. No blastic or lytic lesions. Mild degenerative changes of the bilateral hips. The soft tissues are unremarkable. RAD/HIP, UNI W/ Pelvis 2-3 Views IMPRESSION: No acute radiographic abnormalities. Electronically Signed: Stephen Stewart MD at 17:47 EST , CC: Dr. Dinorah Coleman MD; ED PHYSICIAN PROVIDER Compensation Advisor: Signed Normal [facility] CBC, Employeeon 08-29-2024 Absolute Lymph 2.07 X10 3/uL Normal 0.83-4.51 [facility] Comment on above: Performed By: #### L 100.0200, L500.2900 #### [facility] [address] [place], [address] Absolute Neut 3.4 X10 3/uL Normal 2.0-7.7 [facility] Comment on above: Performed By: #### L 100.0200, L500.2900 #### [facility] [address] [place], [address] Basophils/100 WBC (Bld) 1.1 % High 0-1 [facility] Comment on above: Performed By: #### L 100.0200, L500.2900 #### [facility] [address] [place], [address] Eosinophils/100 WBC (Bld) 3.5 % Normal 0-5 [facility] Comment on above: Performed By: #### L 100.0200, L500.2900 #### [facility] [address] [place], [address] Erythrocyte distribution width (RBC) [Ratio] 13.0 % Normal 11.6-14.6 [facility] Comment on above: Performed By: #### L 100.0200, L500.2900 #### [facility] [address] [place], [address] Hematocrit (Bld) [Volume fraction] 42.1 % Normal 37-47 [facility] Comment on above: Performed By: #### L 100.0200, L500.2900 #### [facility] [address] [place], [address] Hemoglobin (Bld) [Mass/Vol] 13.7 g/dL Normal 12.0-15.0 [facility] Comment on above: Performed By: #### L 100.0200, L500.2900 #### [facility] [address] [place], [address] Lymphocytes/100 WBC (Bld) 33.1 % Normal 19-41 [facility] Comment on above: Performed By: #### L 100.0200, L500.2900 #### [facility] [address] [place], [address] MCH (RBC) [Entitic mass] 28.3 pg Normal 27.0-32.0 [facility] Comment on above: Performed By: #### L 100.0200, L500.2900 #### [facility] [address] [place], [address] MCHC (RBC) [Mass/Vol] 32.5 g/dL Normal 32-36 [facility] Comment on above: Performed By: #### L 100.0200, L500.2900 #### [facility] [address] [place], [address] MCV (RBC) [Entitic vol] 87.0 fL Normal 81-99 [facility] Comment on above: Performed By: #### L 100.0200, L500.2900 #### [facility] [address] [place], [address] Monocytes/100 WBC (Bld) 8.3 % Normal 0-10 [facility] Comment on above: Performed By: #### L 100.0200, L500.2900 #### [facility] [address] [place], [address] Neutrophils/100 WBC (Bld) 53.7 % Normal 47-70 [facility] Comment on above: Performed By: #### L 100.0200, L500.2900 #### [facility] [address] [place], [address] NRBC # 0.00 10 3/uL Normal 0-5 [facility] Comment on above: Performed By: #### L 100.0200, L500.2900 #### [facility] [address] [place], [address] Nucleated RBC (Bld) [#/Vol] 0 10*3/uL Normal 0-5 [facility] Comment on above: Performed By: #### L 100.0200, L500.2900 #### [facility] [address] [place], [address] Platelet mean volume (Bld) [Entitic vol] 9.4 fL Normal 6.2-12.0 [facility] Comment on above: Performed By: #### L 100.0200, L500.2900 #### [facility] [address] [place], [address] Platelets (Bld) [#/Vol] 428 10*3/uL Normal 150-450 [facility] Comment on above: Performed By: #### L 100.0200, L500.2900 #### [facility] [address] [place], [address] RBC (Bld) [#/Vol] 4.84 10*6/uL Normal 4.2-5.4 [facility] Comment on above: Performed By: #### L 100.0200, L500.2900 #### [facility] [address] [place], [address] RDW SD 40.4 fl Normal 35.1-43.9 [facility] Comment on above: Performed By: #### L 100.0200, L500.2900 #### [facility] [address] [place], [address] WBC (Bld) [#/Vol] 6.3 10*3/uL Normal 4.4-11.0 [facility] Comment on above: Performed By: #### L 100.0200, L500.2900 #### [facility] [address] [place], [address] Employee Profile[employer] 4 Albumin [Mass/Vol] 3.6 g/dL Normal 3.2-5.0 [facility] Comment on above: Performed By: #### L 100.0200, L500.2900 #### [facility] [address] [place], [address] Albumin/Globulin [Mass ratio] 0.9 {ratio} Normal 0.9-2.4 [facility] Comment on above: Performed By: #### L 100.0200, L500.2900 #### [facility] [address] [place], [address] ALK P 91 U/L Normal 45-117 [facility] Comment on above: Performed By: #### L 100.0200, L500.2900 #### [facility] [address] [place], [address] ALT [Catalytic activity/Vol] 20 U/L Normal 13-56 [facility] Comment on above: Performed By: #### L 100.0200, L500.2900 #### [facility] [address] [place], [address] AST [Catalytic activity/Vol] 18 U/L Normal 15-37 [facility] Comment on above: Performed By: #### L 100.0200, L500.2900 #### [facility] [address] [place], [address] Bilirubin [Mass/Vol] 0.40 mg/dL Normal 0.20-1.00 [facility] Comment on above: Result Comment: For patients on eltrombopag therapy, use of Dimension [place] TBIL is not recommended. Performed By: #### L 100.0200, L500.2900 #### [facility] [address] [place], [address] Bilirubin.direct [Mass/Vol] 0.08 mg/dL Normal 0.00-0.30 [facility] Comment on above: Performed By: #### L 100.0200, L500.2900 #### [facility] [address] [place], [address] BUN/CRE 14.9 RATIO Normal 10-20 [facility] Comment on above: Performed By: #### L 100.0200, L500.2900 #### [facility] [address] [place], [address] CA,Total 9.0 mg/dL Normal 8.5-10.1 [facility] Comment on above: Performed By: #### L 100.0200, L500.2900 #### [facility] [address] [place], [address] Chloride [Moles/Vol] 108 mmol/L High 98-107 [facility] Comment on above: Performed By: #### L 100.0200, L500.2900 #### [facility] [address] [place], [address] CHOL:HDL 3.10 Normal [facility] Comment on above: Performed By: #### L 100.0200, L500.2900 #### [facility] [address] [place], [address] Cholesterol [Mass/Vol] 220 mg/dL High 200 [facility] Comment on above: Result Comment: <200 mg/dL Desirable 200-240 mg/dL Borderline >240 mg/dL High Risk Performed By: #### L 100.0200, L500.2900 #### [facility] [address] [place], [address] Cholesterol in HDL [Mass/Vol] 70 mg/dL Normal [facility] Comment on above: Result Comment: The drugs N-Acetylcysteine and Metamizole may falsely depress this assay. Reference Range HDL <40 mg/dL Low HDL Cholesterol HDL >or= 60 mg/dL High HDL Cholesterol Performed By: #### L 100.0200, L500.2900 #### [facility] [address] [place], [address] Cholesterol in LDL [Mass/Vol] 128 mg/dL Normal 0-130 [facility] Comment on above: Performed By: #### L 100.0200, L500.2900 #### [facility] [address] [place], [address] Cholesterol in VLDL [Mass/Vol] 22 mg/dL Normal 5-40 [facility] Comment on above: Performed By: #### L 100.0200, L500.2900 #### [facility] [address] [place], [address] CO2 [Moles/Vol] 26.0 mmol/L Normal 21.0-32.0 [facility] Comment on above: Performed By: #### L 100.0200, L500.2900 #### [facility] [address] [place], [address] Creatinine [Mass/Vol] 0.81 mg/dL Normal 0.55-1.02 [facility] Comment on above: Result Comment: The validity of the calculated GFR GFRAA in patients over 70 years has not been determined. Clinical correlation is essential. Performed By: #### L 100.0200, L500.2900 #### [facility] [address] [place], [address] EST GFR - AA 92 mL/min Normal >60 [facility] Comment on above: Result Comment: Afri can [place]eg[place]e GFR Calc Performed By: #### L 100.0200, L500.2900 #### [facility] [address] [place], [address] GAP 8 Normal 5-15 [facility] Comment on above: Performed By: #### L 100.0200, L500.2900 #### [facility] [address] [place], [address] GFR/1.73 sq M.predicted among non-blacks MDRD (S/P/Bld) [Vol rate/Area] 76 mL/min/{1.73_m2} Normal >60 [facility] Comment on above: Result Comment: Non- GFR Calc Performed By: #### L 100.0200, L500.2900 #### [facility] [address] [place], [address] Globulin (S) [Mass/Vol] 4.2 g/dL Normal 2.2-4.2 [facility] Comment on above: Performed By: #### L 100.0200, L500.2900 #### [facility] [address] [place], [address] Glucose [Mass/Vol] 108 mg/dL High 74-106 [facility] Comment on above: Result Comment: Fast ing Glucose result from 100 to 125 mg/dL suggests IMPAIRED HOMEOSTASIS per A.D.A. criteria. Performed By: #### L 100.0200, L500.2900 #### [facility] [address] [place], [address] LDH 174 U/L Normal 84-246 [facility] Comment on above: Performed By: #### L 100.0200, L500.2900 #### [facility] [address] [place], [address] Phosphate [Mass/Vol] 4.0 mg/dL Normal 2.5-4.9 [facility] Comment on above: Performed By: #### L 100.0200, L500.2900 #### [facility] [address] [place], [address] Potassium [Moles/Vol] 3.8 mmol/L Normal 3.5-5.1 [facility] Comment on above: Performed By: #### L 100.0200, L500.2900 #### [facility] [address] [place], [address] Sodium [Moles/Vol] 142 mmol/L Normal 136-145 [facility] Comment on above: Performed By: #### L 100.0200, L500.2900 #### [facility] [address] [place], [address] T PROT 7.8 g/dL Normal 6.4-8.2 [facility] Comment on above: Performed By: #### L 100.0200, L500.2900 #### [facility] [address] [place], [address] Triglyceride [Mass/Vol] 112 mg/dL Normal [facility] Comment on above: Result Comment: The drugs N-Acetylcysteine and Metamizole may falsely depress this assay. Serum Triglycerides Reference Interval Normal <150 mg/dL Borderline high 150 - 199 mg/dL High 200 - 499 mg/dL Very High > or = 500 mg/dL Performed By: #### L 100.0200, L500.2900 #### [facility] [address] [place], [address] Urea nitrogen [Mass/Vol] 12 mg/dL Normal 7-18 [facility] Comment on above: Performed By: #### L 100.0200, L500.2900 #### [facility] [address] [place], [address] URIC 5.5 mg/dL Normal 2.6-6.0 [facility] Comment on above: Result Comment: The drugs N-Acetylcysteine and Metamizole may falsely depress this assay. Performed By: #### L 100.0200, L500.2900 #### [facility] [address] [place], [address] Office Visit: [facility] 07-30-2017 Documentation of current medications (procedure) Done Invalid Interpretation Code [facility] Work Phone: Documentation of current medications (procedure) T Invalid Interpretation Code [facility] Work Phone: Tobacco smoking status NHIS Never Invalid Interpretation Code [facility] Work Phone: Tobacco use CPHS Never smoker Invalid Interpretation Code [facility] Work Phone: SARS-CoV-2 (COVID-19) Ag IA. rapid Ql (Resp) SARS-CoV-2 Antigen (Rapid) SARS-CoV-2 (COVID 19) [facility] Work Phone: Vital Signs Date Time Vital Sign Value Performing Clinician Faci lity 05-18-2025 14:57-0400 Body temperature 98.2 [degF] Dr. Dinorah Coleman MD Work Phone: [facility] 05-18-2025 14:57-0400 Diastolic blood pressure 66 mm[Hg] Dr. Dinorah Coleman MD Work Phone: [facility] 05-18-2025 14:57-0400 Heart rate 68 /min Dr. Dinorah Coleman MD Work Phone: [facility] 05-18-2025 14:57-0400 Respiratory rate 16 /min Dr. Dinorah Coleman MD Work Phone: [facility] 05-18-2025 14:57-0400 SaO2% (BldA) [Mass fraction] 98 % Dr. Dinorah Coleman MD Work Phone: [facility] 05-18-2025 14:57-0400 Systolic blood pressure 122 mm[Hg] Dr. Dinorah Coleman MD Work Phone: [facility] 07-30-2017 09:41-0400 BMI (Body Mass Index) 37.2 kg/m2 Chauncey SHANNON [facility] Work Phone: 07-30-2017 09:41-0400 BP Diastolic 76 mm[Hg] Chauncey SHANNON [facility] Work Phone: 07-30-2017 09:41-0400 BP Systolic 128 mm[Hg] Chauncey SHANNON [facility] Work Phone: 07-30-2017 09:41-0400 Height 160.02 cm Chauncey SHANNON [facility] Work Phone: 07-30-2017 09:41-0400 Weight 95.26 kg Chauncey SHANNON [facility] Work Phone: 10-17-2016 10:39-0500 Body Temperature 98 [degF] Chauncey SHANNON [facility] Work Phone: 10-17-2016 10:39-0500 Pulse (Heart Rate) 64 /min Chauncey SHANNON [facility] Work Phone: 10-17-2016 10:39-0500 Respiratory Rate 18 /min Chauncey SHANNON [facility] Work Phone: Encounters Encounter Date Encounter Type Care Provider Facility Start: 05-18-2025 End: 05-18-2025 Patient encounter procedure Jhonny SHANNON -[facility] Work Phone: Start: 05-18-2025 End: 05-18-[address] Dinorah Coleman MD Work Phone: [facility] Start: 11-23-2024 End: 11-23-2024 Emergency department patient visit [facility] Facility:[facility] Start: 08-29-2024 ambulatory Health Risk Assessment Facility:[facility] Start: 04-26-2022 Registered Referred [facility] Start: 04-23-2022 End: 04-23-2022 ambulatory [facility] Work Phone: Start: 04-23-2022 End: 04-23-2022 Discharged Recurring [facility]-Physical Therapy Procedures Date Procedure Procedure Detail Performing Clinician Start: 07-30-2017 End: 07-30-2017 [facility] Chauncey Chambers Work Phone: Start: 07-30-2017 End: 07-30-2017 [facility] Chaun[facility]y Chambers Work Phone: Start: 10-17-2016 End: 10-17-2016 [facility] streptococcus group a Jhonny SHANNON Work Phone: Start: 10-17-2016 End: 10-17-2016 Rapid strep test Jhonny SHANNON Work Phone: Start: 07-20-2015 End: 07-25-2015 Arthrocentesis aspir&/inj major jt/bursa w/o us Yasmani Peter Parker Work Phone: Start: 07-20-2015 End: 07-25-2015 Drain/inject, joint/bursa Yasmani Green Parker Work Phone: Viral antigen assay Plan of Treatment Date Care Activity Detail Author Start: 07-30-2017 End: 07-30-2017 Appointment Appointment [facility] Work Phone: Start: 08-01-2015 End: 08-01-2015 Physical Therapy [facility], [address] [place] [address], [id number] [facility] Work Phone: Start: 08-01-2015 End: 08-01-2015 Physical Therapy General [facility], [address] [place] [address], [address] [facility] Work Phone: Start: 07-20-2015 End: 07-23-2015 Mri any jt lower extrem w/o contrast matrl MRI Joint Lower Extremity [facility] Work Phone: Start: 07-20-2015 End: 07-23-2015 Mri jnt of lwr extre w/o dye MRI Joint Lower Extremity [facility] Work Phone: Immunizations Immunization Date Immunization Notes Care Provider [facility] 09-02-2024 influenza, seasonal, injectable, preservative free Dr. Dinorah Coleman MD Work Phone: [facility] 08-05-2023 influenza, injectabl e, quadrivalent, preservative free Dr. Dinorah Coleman MD Work Phone: [facility] 08-04-2022 influenza, injectabl e, quadrivalent, preservative free Dr. Dinorah Coleman MD Work Phone: [facility] 09-17-2021 [facility] (Moderna) [facility] 07-30-2021 influenza, injectabl e, quadrivalent, preservative free Dr. Dinorah Coleman MD Work Phone: [facility] 07-30-2021 influenza, seasonal, injectable [facility] Work Phone: 11-28-2020 Covnj (Moderna) [facility] 10-31-2020 [facility] (Moderna) [facility] 07-31-2020 influenza, injectabl e, quadrivalent, preservative free Dr. Dinorah Coleman MD Work Phone: [facility] 07-31-2020 influenza, seasonal, injectable [facility] Work Phone: 08-11-2019 influenza, injectabl e, quadrivalent, preservative free Dr. Dinorah Coleman MD Work Phone: [facility] 08-11-2019 influenza, seasonal, injectable [facility] Work Phone: 09-30-2018 influenza, injectabl e, quadrivalent, preservative free Dr. Dinorah Coleman MD Work Phone: [facility] 09-30-2018 influenza, seasonal, injectable [facility] Work Phone: 07-29-2017 influenza, injectabl e, quadrivalent, preservative free Dr. Dinorah Coleman MD Work Phone: [facility] 07-29-2017 influenza, seasonal, injectable [facility] Work Phone: 07-31-2016 influenza, injectabl e, quadrivalent, preservative free Dr. Dinorah Coleman MD Work Phone: [facility] 07-31-2016 influenza, seasonal, injectable [facility] Work Phone: 08-30-2015 influenza, injectabl e, quadrivalent, preservative free Dr. Dinorah Coleman MD Work Phone: [facility] 08-30-2015 influenza, seasonal, injectable [facility] Work Phone: 08-02-2014 influenza, injectabl e, quadrivalent, preservative free Dr. Dinorah Coleman MD Work Phone: [facility] 08-02-2014 influenza, seasonal, injectable [facility] Work Phone: 12-20-2013 hepatitis B vaccine, pediatric or pediatric/adolescent dosage [facility] 2013 Influenza virus vaccine [facility] Payers Date Payer Category Payer Unknown [id number] 2024 Self-pay [id number] Unknown [facility] [id number] Unknown [id number] Unknown [id number] Social History Date Type Detail Facility Start: 03-01-2022 Tobacco smoking stat [facility] Unknown if ever smoked [facility] Work Phone: Start: 1960 Sex Assigned At Female [facility] Start: [facility]-23-2024 [facility] Evaluation note Note Date & Type Note Facility Evaluation note No assessment information availa ble [facility] Work Phone: Evaluation note Note Date & Type Note Facility Evaluation note Diagnosis Onset Date Resolution Allergic reaction noneactive May 182024 2:36pm [facility] Work Phone: Reason for referral (narrative) Note Date & Type Note Facility Reason for referral (narrative) No reason for referral information available [facility] Work Phone: Chief Complaint and Reason for Visit Chief Complaint OSTEOARTHRITIS, LEFT KNEE. RX HERE Chief Complaint Admit Date Allergic reaction May 18, 2025 2:36 pm Reason for Visit Admit Date Allergic reaction May 18, 2025 2:36 pm Summary Purpose Family History No Family History Records Found Advance Directives No Advanced Directives Records Found Additional Source Comments Goals (unrecognized section and content) Goals may be documented in a n alternate sectionGoals may be documented in an alternate section Care Teams (unrecognized sec tion and content) Team Status: Active Member Role/Relationship Status Dates Dr. Dinorah Coleman MD Family Provider Active Dr. Dinorah Coleman MD Primary Care Provider Active Team Status: Inactive Member Role/Relationship Status Dates Dr. Dinorah Coleman MD Primary Care Provider Active Start: May 18, 2025 End: May 18, 2025 Dr. Dinorah Coleman MD Referring Provider Active Start: May 18, 2025 End: May 18, 2025 MIRTHA Hicks Attending Provider Active Sta rt: May 18, 2025 End: May 18, 2025 INFORMATION SOURCE (unrecogn ized section and content) DATE CREATED AUTHOR 05/22/2025 [facility] FOR RECORDS PERTAINING TO PATIENTS WHO ARE OR HAVE BEEN ENROLLED IN A CHEMICAL DEPENDENCY/SUBSTANCEABUSE PROGRAM, SOME INFORMATION MAY BE OMITTED. This clinical summary was aggregated from multiple sources. Caution should be exercised in using it in the provision of clinical care. This summary normalizes information from multiple sources, and as a consequence, information in this document may materially change the coding, format and clinical context of patient data. In addition, data may be omitted in some cases. CLINICAL DECISIONS SHOULD BE BASED ON THE PRIMARY CLINICAL RECORDS. [employer] provides no warranty or guarantee of the accuracy or completeness of information in this document.
[2025-06-04 19:16] VITALS: BP 143/79; PULSE 70; RESP 18; TEMP 37.2; O2SAT 98
== END 2025-06-04 19:17 | disposition home or self-care (01) ==
LOC: ED 19:06
PROVIDERS: Emergency Provider Emergency Medicine; PCP Family Medicine; Visit Provider Emergency Medicine
DX: M54.16 Radiculopathy, lumbar region (principal); M54.50 Low back pain, unspecified; Z90.49 Acquired absence of other specified parts of digestive tract; X58.XXXA Exposure to other specified factors, initial encounter; Y92.89 Other specified places as the place of occurrence of the external cause
CPT/HCPCS: 99282

== ENCOUNTER → 2025-06-12 | Outpatient (CLI) | payer OTHER, SELFPAY | END | disposition home or self-care (01) | LOC: MTRAD 13:58 | PROVIDERS: PCP Family Medicine; Referring Provider Family Medicine; Visit Provider Family Medicine | DX: M54.9 Dorsalgia, unspecified (principal) | CPT/HCPCS: 72110 ==

== ENCOUNTER → 2025-07-13 | Outpatient (CLI) | payer OTHER, SELFPAY ==
--- NOTE | 2025-07-13 11:27 | RAD_ITS ---
PROCEDURE: HIP, UNI W/ PELVIS 2-3 VIEWS 07/13/2025 REASON FOR EXAM: HIP PAIN TECHNIQUE: Procedure Code: RADHP Modality: DX Procedure: HIP, UNI W/ PELVIS 2-3 VIEWS Laterality: Left COMPARISON: Left hip and pelvis series 11/23/2024. RAD/HIP, UNI W/ Pelvis 2-3 Views IMPRESSION: Degenerative changes of the visualized lower lumbar spine again noted. Minimal to mild sacroiliac joint degenerative changes are noted. Mild right hip joint degenerative changes are seen, without associated joint na rrowing. No more than minimal left hip degenerative changes are noted, and no joint narrowing is seen. No evidence of femoral head osteonecrosis. No acute fracture or dislocation is evident. Reading Location: [place] [address]
== END | disposition home or self-care (01) ==
PROVIDERS: PCP Family Medicine; Referring Provider Family Medicine; Visit Provider Family Medicine
DX: M25.552 Pain in left hip (principal)
CPT/HCPCS: 73502

== ENCOUNTER 2025-08-31 12:00 | Outpatient (RCR) | payer OTHER, SELFPAY ==
--- NOTE | 2025-06-21 13:52 | HP.PTEVAL_ITS ---
Patient's Visit Information Visit Information Visit Information: ANITHA GARCIA is a 64 year old F referred to Physical Therapy by Dr. Angel Schuler MD with a diagnosis of BACK PAIN. Date of Evaluation: 06/21/25 Physical Therapist: Susan George, PT, Cert MDT Visit Plan Frequency: 2-3x /Week Duration: 4-6 Weeks Plan: CP, MH, TENS/IF-ESTIM AND US NEEDED TO DECREASE PAIN AND INFLAMMATION. POSTURE CORRECTION/STRENGTHENING, INSTRUCTION IN APPROPRIATE BODY MECHANICS AND ACTIVITY MODIFICATIONS. DLS STARTING WITH A NEUTRAL SPINE PROGRESSING ROM TOLERATED. PRASAD LE ROM, STRETCHING AND STRENGTHENING. HEP INSTRUCTION. CONSIDER AQUATIC THERAPY IF NOT TOLERATING OR RESPONDING TO [facility]AND PT. 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 HAS MISSED SOME WORK FOR THIS BUT TRYING TO WORK. WORK MAINLY INVOLVES STANDING. LIVES ALONE. Present symptoms: LOW BACK PAIN, L HIP, L THIGH, L LEG, L ANKLE, L FOOT AND TOE PAIN. L LEG, FOOT AND TOE NUMNESS AND TINGLING. Present since: 3 WKS AGO Pain Scale: WORST 9/10, LEAST 3/10 Currently: 7/10 Is it getting better, worse or staying the same: GETTING WORSE Commenced as a result of: NO APPARENT REASON Symptoms at onset: LOW BACK PAIN Worse: STANDING AT SINK DOING DISHES OR COOKING, WALKING, SITTING, LYING DOWN, THE LITTEST TWITCH CAN SET IT OFF. Better: SITTING, HEATING PAD AND ICE ON BACK, ICE ON ANKLE, meloxicam, gabapentin, arthritis Tylenol. JUST RIGHT SPOT IN RECLINER Disturbed sleep: YES. THE MOST IN BED HAS BEEN 3 HOURS. SLEEPING IN RECLINER. Previous history/Previous treatment: BACK ISSUES SINCE COLLEGE BUT USUALLY COMES AND GOES. LATELY IT HAS BEEN HARDER TO GET THE PAIN TO GO AWAY. NO BACK SURGERY, INJECTIONS, PT OR CHIROPRACTIC. Treatment this episode: Gabapentin. A week of prednisone - thought it was getting better but then went to hip and down leg. Coughing/sneezing/straining: NE ON PAIN THAT PATIENT IS AWARE OF. Gait: PATIENT REPORTS SHE IS FAVORING HER LLE WHEN WALKING. IT HURTS TO STAND AND WALK UP STRAIGHT. STEPS ARE DIFFICULT BUT CAN DO THEM ONE AT A TIME. Bowel or Bladder Dysfunction: NO Accidents: NO Unexplained weight loss: NO Imaging: LUMBAR X-RAY RECENTLY SHOWING MODERATE ARTHRITIS PER PATIENT REPORT. NO MRI. PMH/Recent major surgery: ARTHRITIS. ANXIETY AND DEPRESSION. Objective Objective: Sitting/Standing Posture: DECREASED LORDOSIS. NO RELEVANT LATERAL LUMBAR SHIFT. Active Correction of posture: WORSE - PERIPHERALIZES TO ANKLE/FOOT. Other Observations: THIS PATIENT AMBULATES INDEP'LY INTO PT LIMPTING ON HER LLE WITH DECREASED CADANCE AND INCREASED TRUNK FLEXION NOT USING ANY AD'S. Sensory deficit: PRASAD LE LIGHT TOUCH SENSATION GROSSLY INTACT AND SYMMETRICAL ROM deficit: PRASAD HS, HIP IR L>R, AND CALF TIGHTNESS. Motor deficit: R HIP 4/5, KNEE 5/5, ANKLE 5/5. L HIP 4-/5, KNEE 4-/5, ANKLE 3+/5. Reflexes: R QUAD 2+, ACHILLES 2+. L QUAD 1+, L ACHILLES 1+. Dural Signs: POSITIVE LLE. Lumbar mvmt loss: flex - MOD - INCREASES BACK AND L LE - W ext - SHEREE - INCREASES BACK AND L LE - W R SG - MOD - INCREASES BACK - NW L SG - SHEREE - INCREASES BACK AND LLE - W Core strength: FAIR Palpation: TENDERNESS WITH PALPATION OF L2345 AND ENTIRE SACRAL AREA. ALSO TENDER L BUTTOCK AND GREATER TROCH REGION INTO L LATERAL THIGH. TREATMENT: NEUROMUSCULAR REEDUCATION - RETRAINING OF MVMT AND POSTURE FOR SITTING, LYING AND STANDING ACTIVITIES. Balance/Special Test Scores Oswestry Low Back Score: 25 Goals Goal 1:: DECREASE C/O LOW BACK AND LLE SX'S TO EASE ADL'S. Goal Time Frame: 4-6 Weeks Goal 2:: IMPROVE PERSONAL CARE, LIFTING, WALKING, SITTING, STANDING, SLEEP, SOCIAL LIFE, TRAVEL, WORK AND HOMEMAKING FUNCTION WITH AT LEAST 10 POINT IMPROVEMENT IN BACK OSWESTRY SCORE Goal Time Frame: 4-6 Weeks Goal 3:: INSTRUCT IN PROPHYLAXIS Goal Time Frame: 4-6 Weeks Rehabilitation Potential Physical Therapy Diagnosis: CORE AND LE STIFFNESS AND WEAKNESS L>R WITH C/O LBP AND LLE PAIN, NUMBNESS AND TINGLING. Rehabilitation Potential: Good Anticipated Interventions Patient/Client Instruction: Educate patient on: Condition, Plan of Care and Risk Factors For the Purpose of:: To improve self management Therapeutic Exercise to Include: Strength training, Body mechanics, Postural training, Flexibilty training, Gait and locomotor training, Neuromotor development, "In an aquatic setting" and Dynamic Lumbar Stabilization For the Purpose of:: To decrease pain, To improve muscle performance and motor function, To increase tolerance to activity/condition/position, To improve ability of physical actions for home/community/work/leisure and To improve self management TENS: Yes IF ES: Yes Cryotherapy (ice pack, ice massage): Yes Thermo therapy (hot pack): Yes Ultrasound (thermal/non thermal): Yes For the Purpose of:: To decrease pain, To decrease swelling/inflammation and To improve nutrient delivery to tissue Text: Thank you for the opportunity to evaluate your patient. For Medicare and Medicare HMO plans, please review the plan of care and approve it. It will need to be FAXED BACK to us at [phone] for Medicare purposes. For Medicare only, by signing this I certify the plan of care. Please let me know if there are questions or concerns regarding this plan of care. Physician Signature: Date:
--- NOTE | 2025-07-18 14:16 | HP.PTREVAL ---
Re-Evaluation Intro: Dr. Angel Schuler MD, It has been my pleasure to treat ANITHA GARCIA over the last 10 visits for BACK PAIN. Please see the progress note below for an update on the physical therapy plan of care! Subjective Subjective: PATIENT REPORTS THE PAIN DOWN HER LEG IS GONE BUT CONSTANT MILD TINGLING IN TOES IS STILL THERE. STILL HAS HIP PAIN BUT THE SHARP HIP PAIN THAT WAS MAKING IT HARD TO WALK IS GONE. CONSTANT LOW BACK PAIN NOW BUT NOT GRABBING AND INTENSE IT WAS AT FIRST. "TODAY I'M HAVING A GOOD DAY". CURRENTLY LBP AND L HIP PAIN ARE RANGING 3-05/11. LAST THURSDAY HAD FOLLOW UP WITH DR. SCHULER AND FELT GOOD BUT HAD A BAD DAY THURSDAY AND A BAD DAY THURSDAY. STATES DR. SCHULER DID L HIP X-RAY SHOWING MODERATE DEGENERATION AND RECOMMENDED PT FOR IT AND RENEWED HER GABAPENTIN. Objective Objective/Function: PATIENT WAS SEEN TODAY FOR RE-ASSESSMENT OF PROGRESS TOWARD THE SET PT GOALS AND THE NEED FOR FURTHER PHYSICAL THERAPY VS READINESS FOR DISCHARGE. THIS PATIENT APPEARS TO BE A GOOD CANDIDATE TO CONTINUE PT BASED ON PROGRESS MADE AND ROOM FOR FURTHER IMPROVEMENT. PATIENT IS AGREEABLE. SHE DEMONSTRATES IMPROVED GAIT, TRANSFERS, AND LE STRENGTH COMPARED TO INITIAL EVAL ALONG WITH DECREASED C/O PAIN WITH LUMBAR ROM TESTING HOWEVER SHE STILL HAS SIGNIFICANTLY LIMITED LUMBAR ROM AND SENSATIVITY IN THE LUMBOSACRAL AND L HIP REGIONS. SHE ALSO HAS POSITIVE LLE DURAL SIGN AND C/O CONSTANT TINGLING L TOES. RECOMMEND AQUATIC THERAPY AND PATIENT AGREEABLE. UPON EXAM TODAY: THIS PATIENT AMBULATES INDEP'LY INTO PT WITHOUT ANY AD'S OR GROSS DEVIATIONS NOTED. SHE IS ABLE TO TRANSFER INDEP'LY FROM SIT TO STAND WITHOUT UE ASSIST. Motor deficit: R HIP 4/5, KNEE 5/5, ANKLE 5/5. L HIP 4/5, KNEE 4/5, ANKLE 4/5. Reflexes: UNABLE TO ELICIT PRASAD LE DTR'S. Dural Signs: POSITIVE LLE. Lumbar mvmt loss: flex - MOD - INCREASES BACK - NW ext - SHEREE - INCREASES BACK - NW R SG - MOD - INCREASES BACK - NW L SG - SHEERE - INCREASES BACK - NW Core strength: FAIR Palpation: TENDERNESS WITH PALPATION OF [id number] AND ENTIRE SACRAL AREA. ALSO TENDER L BUTTOCK BUT NOT L GREATER TROCH OR LATERAL THIGH NOW. Plan Plan Plan: CONTINUE PT 2X'S A WK X 10-12 VISITS *MONITOR LE SYMPTOMS AND AVOID PERIPHERALIZATION OF SX'S* AQUATIC THERAPY FOR PAIN RELIEF, POSTURE CORRECTION/STRENGTHENING, INSTRUCTION IN APPROPRIATE BODY MECHANICS AND ACTIVITY MODIFICATIONS. DLS STARTING WITH A NEUTRAL SPINE PROGRESSING ROM TOLERATED. PRASAD LE ROM, STRETCHING AND STRENGTHENING. HEP INSTRUCTION. Balance/Gait/Functional tests Balance/Special Test Scores Oswestry Low Back Score: 23 Goals Goals Goal 1:: DECREASE C/O LOW BACK AND LLE SX'S TO EASE ADL'S. Goal Time Frame: 4-6 Weeks Goal Progress: Progressing Goal 2:: IMPROVE PERSONAL CARE, LIFTING, WALKING, SITTING, STANDING, SLEEP, SOCIAL LIFE, TRAVEL, WORK AND HOMEMAKING FUNCTION WITH AT LEAST 10 POINT IMPROVEMENT IN BACK OSWESTRY SCORE Goal Time Frame: 4-6 Weeks Goal Progress: Progressing slowly Goal 3:: INSTRUCT IN PROPHYLAXIS Goal Time Frame: 4-6 Weeks Goal Progress: Progressing slowly Anticipated Interventions Anticipated Interventions Patient/Client Instruction: Educate patient on: Condition, Plan of Care and Risk Factors For the Purpose of:: To improve self management Therapeutic Exercise to Include: Strength training, Body mechanics, Postural training, Flexibilty training, Gait and locomotor training, Neuromotor development, "In an aquatic setting" and Dynamic Lumbar Stabilization For the Purpose of:: To decrease pain, To improve muscle performance and motor function, To increase tolerance to activity/condition/position, To improve ability of physical actions for home/community/work/leisure and To improve self management TENS: Yes IF ES: Yes Cryotherapy (ice pack, ice massage): Yes Thermo therapy (hot pack): Yes Ultrasound (thermal/non thermal): Yes For the Purpose of:: To decrease pain, To decrease swelling/inflammation and To improve nutrient delivery to tissue Re-Evaluation Ending Re-evaluation ending: Please do not hesitate to contact me at [phone] by phone or if you have questions or concerns regarding this new plan of care! Sincerely, Susan George, PT, Cert MDT
--- NOTE | 2025-08-31 12:36 | HP.PTDCSUM ---
Discharge Summary D/C summary: It has been my pleasure to treat ANITHA GARCIA referred by Dr. Angel Schuler MD, with the diagnosis of BACK PAIN for a total of 20 visit(s). Discharge Date: 08/31/25 Please see the following information for a summary of their discharge status. Subjective Subjective: PATIENT REPORTS SHE IS A GOOD 90% BETTER. SHE STATES SHE IS HOPING IF SHE CONTINUES THE HOME EX'S THE PAIN WILL NOT COME BACK LIKE IT WAS. SHE REPORTS THE PAIN IN HER HIP AND DOWN HER LEG IS GONE THAT SHE CAME HERE FOR. SHE STATES SHE HAS ALWAYS HAD BACK PAIN. SHE WOULD LIKE TO CONTINUE TO USE OUR POOL TO DO THE EX'S SHE HAS LEARNED BUT SHE CAN'T FIGURE OUT HOW TO WORK IT OUT WITH HER WORK SHIFT. Pain LB: Pain Intensity (Out of 10): 2 L hip into LE: Pain Intensity (Out of 10): 0 Overall Improvement % Improvement: 90 Objective Objective/Function: PATIENT WAS SEEN TODAY FOR RE-ASSESSMENT OF PROGRESS TOWARD THE SET PT GOALS AND THE NEED FOR FURTHER PHYSICAL THERAPY VS READINESS FOR DISCHARGE. EDUCATED PATIENT ON BENEFITS OF CONTINUED HOME AND INDEP AQUATIC EX. SHE IS APPROPRIATE FOR AND AGREEABLE TO DISCHARGE TODAY. UPON EXAM: Motor Deficits: PRASAD LE'S 5/5. Dural Signs: ,MILD POSITIVE LLE. Lumbar mvmt loss: flex - Min ext - Mod R SG - MOD L SG - SHEREE PATIENT DENIES INCREASED BACK PAIN WITH LUMBAR ROM TESTING TODAY. Core strength: FAIR Palpation: NO ACUTE LUMBOSACRAL TENDERNESS TODAY. Goals Goal 1:: DECREASE C/O LOW BACK AND LLE SX'S TO EASE ADL'S. Goal Progress: Goal Met Goal 2:: IMPROVE PERSONAL CARE, LIFTING, WALKING, SITTING, STANDING, SLEEP, SOCIAL LIFE, TRAVEL, WORK AND HOMEMAKING FUNCTION WITH AT LEAST 10 POINT IMPROVEMENT IN BACK OSWESTRY SCORE Goal Progress: Goal Met Goal 3:: INSTRUCT IN PROPHYLAXIS Goal Progress: Goal Met Plan Plan: D/C. PATIENT AGREEABLE. D/C Information d/c sentence: If there are questions or concerns regarding this patient's physical therapy, please feel free to call me at [phone]. Thank you for the referral of this patient. Sincerely, Susan George, PT, Cert MDT Balance/Gait/Functional tests Balance/Special Test Scores Oswestry Low Back Score: 15 Improvement % Improvement: 90
== END 2025-08-31 19:00 | disposition home or self-care (01) ==
LOC: PT 12:00
PROVIDERS: PCP Family Medicine; Referring Provider Family Medicine; Visit Provider Family Medicine
DX: M54.9 Dorsalgia, unspecified (principal)
CPT/HCPCS: 97014; 97035; 97110; 97112; 97113; 97162; 97530; G0283